=== PATIENT | male | born 1985 | race Caucasian/White ===

== ENCOUNTER 2016-12-25 15:43 | Outpatient (CLI) | payer OTHER ==
--- OUTSIDE RECORDS SUMMARY | 2016-12-25 15:47 | XMS | Clinical Summary ---
:1985 Author Organization [facility] Address [address] [place] [address] Phone Care Team Providers Name Role Phone , Primary Care Provider Unavailable Allergies No Known Allergies Current Medications Prescription Sig. Disp. Refills Start Date End Date Status buPROPion (WELLBUTRIN SR) Take 150 mg by Active 150 MG 12 hr tablet mouth 2 (two) times daily. acyclovir (ZOVIRAX) 400 Take 400 mg by Active MG tablet mouth 2 (two) times daily. ibuprofen (ADVIL,MOTRIN) Take 200 mg by Active 200 MG tablet mouth every 6 (six) hours as needed for Pain. Active Problems Not on file Social History Tobacco Use Types Packs/Day Years Used Date Former Smoker 1 20 Quit: 02/25/2015 Smokeless Tobacco: Former User Chew Tobacco Cessation:Counseling Given: Yes Comments:quit 12-27-15 Alcohol Use Drinks/Week oz/Week Comments Yes normally drinks 28 drinks per week - in last 2 week 7-14 per week Sex Assigned at Date Recorded Not on file Last Filed Vital Signs Vital Sign Reading Time Taken Blood Pressure 163/75 02/27/2016 3:05 PM [employer] Pulse 83 02/27/2016 3:05 PM [employer] Temperature 36.9 C (98.5 F) 02/27/2016 2:50 PM [employer] Respiratory Rate 16 02/27/2016 3:05 PM [employer] Oxygen Saturation 96% 02/27/2016 3:05 PM [employer] Inhaled Oxygen Concentration - - Weight 103.6 kg (228 lb 6.4 oz) 02/27/2016 9:36 AM [employer] Height 182.9 cm (6') 02/27/2016 9:36 AM [employer] Body Mass Index 30.98 02/27/2016 9:36 AM [employer] Plan of Treatment Not on file Results Not on filefrom Last 3 Months
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
== END 2016-12-25 15:44 | disposition home or self-care (01) ==
LOC: SCSMRI 15:43
PROVIDERS: ATTEND Orthopaedic Surgery Hand Surgery
DX: S56.991A Other injury of unspecified muscles, fascia and tendons at forearm level, right arm, initial encounter (principal); M25.531 Pain in right wrist; S66.921A Laceration of unspecified muscle, fascia and tendon at wrist and hand level, right hand, initial encounter; M65.88 Other synovitis and tenosynovitis, other site

== ENCOUNTER 2017-01-13 14:43 | Outpatient (CLI) | payer OTHER ==
[2017-01-13 15:46] LABS: Mean Platelet Volume 7.3 fL (7.4-10.4); Red Blood Cell (RBC) Count 4.02 mill/uL (4.70-6.10); White Blood Cell (WBC) Count 6.4 thou/uL (4.8-10.8)
== END 2017-01-13 14:44 | disposition home or self-care (01) ==
LOC: LABBT 14:43
PROVIDERS: ATTEND Orthopaedic Surgery Hand Surgery
DX: Z01.812 Encounter for preprocedural laboratory examination (principal); S51.801A Unspecified open wound of right forearm, initial encounter
CPT/HCPCS: 85027

== ENCOUNTER 2017-01-15 08:18 | Day surgery (SDC) | payer OTHER ==
[2017-01-13 15:07] VITALS: BMI 31.1
[2017-01-15] MEDS ORDERED: CEFAZOLIN/Water 2 GM/20 ML SYRINGE ONE (08:53)
[2017-01-15] MEDS ORDERED: Bacitracin Zinc Ointment 30 gm TUBE ONE (12:05)
[2017-01-15] MEDS ORDERED: Bupivacaine PF 0.5% 30 ML VIAL ONE (12:05)
[2017-01-15] MEDS ORDERED: Fentanyl 250 MCG/5 ML VIAL ONE (12:19)
[2017-01-15] MEDS ORDERED: Betamet Acet/Betamet Na Ph 30 MG/5 ML VIAL ONE (13:01)
[2017-01-15] MEDS ORDERED: Promethazine HCl 25 MG/ML VIAL ONE (14:01)
[2017-01-15] MEDS ORDERED: Ketorolac Tromethamine 30 MG/ML VIAL ONE (14:20)
[2017-01-15] MEDS ORDERED: Non-Formulary Medication 1 EACH PO PRN (14:51)
[2017-01-15] MEDS ORDERED: Ondansetron HCl/PF 4 MG/2 ML Vial IVP PRN (14:51)
[2017-01-15] MEDS ORDERED: Promethazine HCl 25 MG/ML VIAL IM/IV PRN (14:51)
[2017-01-15] MEDS ORDERED: Lidocaine 1% PF 5 ML VIAL ONE (15:09)
[2017-01-15] MEDS ORDERED: Ondansetron HCl/PF 4 MG/2 ML Vial ONE (15:09)
[2017-01-15] MEDS ORDERED: Propofol 200 MG/20 ML VIAL ONE (15:09)
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
== END 2017-01-15 15:00 | disposition home or self-care (01) ==
LOC: SDC 08:18
PROVIDERS: ATTEND Orthopaedic Surgery Hand Surgery
PROC: 01Q40ZZ Repair Ulnar Nerve, Open Approach (ICD-10-PCS; principal; 2017-01-15)
PROC: 0LB50ZZ Excision of Right Lower Arm and Wrist Tendon, Open Approach (ICD-10-PCS; principal; 2017-01-15)
DX: S56.821A Laceration of other muscles, fascia and tendons at forearm level, right arm, initial encounter (principal); G56.21 Lesion of ulnar nerve, right upper limb; F41.9 Anxiety disorder, unspecified; F32.9 Major depressive disorder, single episode, unspecified; G47.33 Obstructive sleep apnea (adult) (pediatric); Z99.89 Dependence on other enabling machines and devices; Z79.899 Other long term (current) drug therapy; Z90.89 Acquired absence of other organs; Z98.818 Other dental procedure status; Z98.890 Other specified postprocedural states; Z87.891 Personal history of nicotine dependence
CPT/HCPCS: 96374; J0702; J1885; J2001; J2405; J2550; J2704; J3010; S0020

== ENCOUNTER 2020-09-25 08:29 | Outpatient (CLI) | payer OTHER | END 2020-09-25 08:30 | disposition home or self-care (01) | LOC: SCSMRI 08:29 | PROVIDERS: ATTEND Family Medicine | DX: M25.562 Pain in left knee (principal); S83.512A Sprain of anterior cruciate ligament of left knee, initial encounter; S83.412A Sprain of medial collateral ligament of left knee, initial encounter ==

== ENCOUNTER 2021-01-14 16:38 | Outpatient (CLI) | payer OTHER ==
[2021-01-14 17:20] LABS: #Basophils 0.1 10x3/uL (0.0-0.2); #Eosinphils 0.1 10x3/uL (0.0-0.5); #Monocytes 0.9 10x3/uL (0.0-1.1); #Neutrophils 6.5 10x3/uL (1.5-8.4); %Basophils 0.5 % (0.0-2.0); %Eosinophils 0.6 % (0.0-6.0); %Lymphocytes 25.6 % (18.0-47.0); %Monocytes 8.9 % (0.0-10.0); %Neutrophils 64.1 % (40.0-75.0); Hemoglobin 14.5 g/dL (13.5-17.5); Mean Corpuscular HGB CONC 34.9 g/dL (32.0-36.0); Mean Corpuscular Hemoglobin 33.4 pg (27.0-33.0); Mean Corpuscular Volume 95.9 fl (81.2-95.1); Mean Platelet Volume 10.3 fl (7.4-10.4); Platelet Count 227 10x3/uL (150-450); RBC Distribution Width 12.1 % (11.5-14.5); Red Blood Cell (RBC) Count 4.34 10x6/uL (4.32-5.72); White Blood Cell (WBC) Count 10.1 10x3/uL (3.5-10.5)
[2021-01-14 17:32] LABS: Anion Gap 13 mmol/L (10-20); BUN (Urea Nitrogen) 13 mg/dL (8.9-20.6); Calc. Creatinine Clearance 0 mL/min (70-130); Calcium 10.2 mg/dL (7.8-10.44); Carbon Dioxide 32 mmol/L (22-29); Chloride 102 mmol/L (98-107); Glucose 82 mg/dL (70-105); Potassium 3.8 mmol/L (3.5-5.1); Sodium 143 mmol/L (136-145)
[2021-01-15 01:35] LABS: SARS-CoV-2 PCR by NAA Not Detected (NotDetected)
== END 2021-01-14 16:39 | disposition home or self-care (01) ==
LOC: LABBT 16:38
PROVIDERS: ATTEND Orthopaedic Surgery
DX: Z01.812 Encounter for preprocedural laboratory examination (principal); S83.512A Sprain of anterior cruciate ligament of left knee, initial encounter; Z20.822 Contact with and (suspected) exposure to COVID-19
CPT/HCPCS: 80048; 85025; U0003; U0005

== ENCOUNTER 2021-01-17 06:58 | Day surgery (SDC) | payer OTHER ==
[2021-01-14 16:26] VITALS: BMI 35.2
[2021-01-17] MEDS ORDERED: ceFAZolin 2 GM/DEX 5% 100 ML BAG ONE (07:25)
[2021-01-17] MEDS ORDERED: Vancomycin 1.5 GRAM/300 ML BAG 1.5 GM in Premix Bag 1 BAG IVPB SCH (08:00)
[2021-01-17] MEDS ORDERED: Midazolam HCl 2 mg/2 ml Vial ONE (08:22)
[2021-01-17] MEDS ORDERED: Fentanyl 100 MCG/2 ML VIAL ONE ×2 (08:22→09:42)
[2021-01-17] MEDS ORDERED: Ropivacaine 0.2% 550 ML 550 ML NERVE BLCK SCH (08:30)
[2021-01-17] MEDS ORDERED: traMADol HCl 50 MG TAB PO PRN ×2 (08:30)
[2021-01-17] MEDS ORDERED: Fentanyl 100 MCG/2 ML VIAL IV PRN (08:30)
[2021-01-17] MEDS ORDERED: Zolpidem Tartrate 5 MG TAB PO PRN (08:30)
[2021-01-17] MEDS ORDERED: Promethazine HCl 25 MG/ML VIAL IM PRN (08:30)
[2021-01-17] MEDS ORDERED: Ondansetron PF 4 MG/2 ML Vial IVP PRN (08:30)
[2021-01-17] MEDS ORDERED: HYDROcodone/Acetaminophen 10/325 mg Tablet PO PRN ×2 (08:30)
[2021-01-17] MEDS ORDERED: Lidocaine 1% PF 5 ML VIAL ONE (10:04)
[2021-01-17] MEDS ORDERED: Ketorolac Tromethamine 30 MG/ML VIAL ONE (10:04)
[2021-01-17] MEDS ORDERED: Ondansetron PF 4 MG/2 ML Vial ONE (10:04)
[2021-01-17] MEDS ORDERED: PROPOFOL 200 MG/20 ML VIAL ONE (10:04)
[2021-01-17] MEDS ORDERED: Bupivacaine HCl 0.5%/Epinephrine 1:200,000/PF 30 ml Vial ONE (10:04)
[2021-01-17] MEDS ORDERED: Dexamethasone 20 MG/5 ML VIAL ONE (10:04)
[2021-01-17] MEDS ORDERED: HYDROcodone/Acetaminophen 5/325 mg Tablet ONE (13:24)
== END 2021-01-17 14:40 | disposition home or self-care (01) ==
LOC: SDC 06:58
PROVIDERS: ATTEND Orthopaedic Surgery
PROC: 0MRP4KZ Replacement of Left Knee Bursa and Ligament with Nonautologous Tissue Substitute, Percutaneous Endoscopic Approach (ICD-10-PCS; principal; 2021-01-17)
DX: S83.512A Sprain of anterior cruciate ligament of left knee, initial encounter (principal); M24.19 Other articular cartilage disorders, other specified site; G47.33 Obstructive sleep apnea (adult) (pediatric); F17.200 Nicotine dependence, unspecified, uncomplicated; Z79.899 Other long term (current) drug therapy; X50.1XXA Overexertion from prolonged static or awkward postures, initial encounter
CPT/HCPCS: A4306; C1713; C1776; C1898; J1100; J1885; J2250; J2405; J2704; J2795; J3010; J3370

== ENCOUNTER 2021-01-31 12:39 | Outpatient (CLI) | payer OTHER | END 2021-01-31 12:40 | disposition home or self-care (01) | LOC: ULT 12:39 | PROVIDERS: ATTEND Family Medicine | DX: M79.605 Pain in left leg (principal) ==